=== PATIENT | male | born 1990 | race Two or more races ===

== ENCOUNTER 2016-05-04 19:41 | Emergency (ER) | payer MEDICAID ==
[2016-05-04 20:02] VITALS: BP 137/96; PULSE 82; RESP 15; TEMP 98.6; O2SAT 96
[2016-05-04] MEDS ORDERED: IBUPROFEN 800 MG TAB PO ONE (21:21)
[2016-05-04] MEDS ORDERED: IBUPROFEN 200 MG TAB PO ONE (21:24)
--- NOTE | 2016-05-04 21:24 | UCPHY ---
H & P Time Seen by Provider: 05/04/16 21:14 Patient Type: New HPI/ROS: CHIEF COMPLAINT: Fall, back pain HISTORY OF PRESENT ILLNESS: Patient is a 25-year-old male who presents emergency department after slipping and falling yesterday. He struck his low to mid back. He now has low midline back pain. It is worse with movement. His pain is moderate. It does not radiate. Has no incontinence of urine or stool. No numbness or weakness. No fevers or chills. REVIEW OF SYSTEMS: My complete review of systems is negative except as mentioned in the HPI. Past Medical/Surgical History: Negative Past surgical history: Denies Smoking Status: Never smoked Physical Exam: Vitals noted GENERAL: Well-appearing, in no acute distress, alert. HEAD: No evidence of trauma. EYES: PERRLA, EOMI, normal to inspection. ENT: Airway intact, normal external examination. NECK: The C-spine is nontender. NEXUS criteria is negative (no midline tenderness, no distracting injury, no altered mental status, no recent alcohol use, no focal neurologic deficit). RESPIRATORY: Clear to auscultation bilaterally. There is no crepitus or palpable rib fractures. CVS: Regular rate and rhythm, no rubs, murmurs, or gallops. ABDOMEN: Soft, nontender Pelvis: Stable. No tenderness palpation. Hips full range of motion. BACK: Normal to inspectio. No spinal step off, no notable bruising or abrasions. Patient has mild upper lumbar tenderness to palpation midline. SKIN: Normal color, warm, dry. No pallor or diaphoresis. EXTREMITIES: Extremities are atraumatic. NEURO/PSYCH: Alert and oriented, normal mood and affect, normal motor sensory exam. Constitutional: Initial Vital Signs Temperature (C) 37 C 05/04/16 19:59 Heart Rate 82 05/04/16 19:59 Respiratory Rate 15 05/04/16 19:59 Blood Pressure 137/96 H 05/04/16 19:59 O2 Sat (%) 96 05/04/16 19:59 O2 Delivery Mode Room Air Allergies/Adverse Reactions: No Known Allergies Allergy (Unverified 12/21/11 20:46) Home Medications: Medication Instructions Recorded Hydrocodone/APAP 5/325 [Letona 1 - 2 tab PO Q4 #13 tab 05/04/16 5/325 (RX)] Medical Decision Making ED Course/Re-evaluation: I discussed possible etiologies with the patient. He is given ibuprofen 800 mg orally. A lumbar spine x-ray was ordered. Lumbar spine x-ray: Please refer the dictated report. No acute disease or fracture noted. Discussed the results with the patient. I answered all his questions. He was given a take-home pack of Letona. He was given a prescription of Letona as well. He was given warnings prior to leaving. He will return with worsening symptoms. Differential Diagnosis: My differential includes but is not limited to back strain, fracture, dislocation, cauda equina syndrome, disc herniation, kidney injury, pneumothorax , hemothorax, pelvic fracture - Data Points Medications Given: Discontinued Medications Ibuprofen (Motrin) 800 mg PO EDNOW ONE Stop: 05/04/16 21:22 Last Admin: 05/04/16 21:30 Dose: 800 mg Departure - Departure Disposition: Home, Routine, Self-Care Clinical Impression: Lumbar back pain Qualifiers: Chronicity: acute Back pain laterality: midline Sciatica presence: without sciatica Qualifier Code: (M54.5) Low back pain Condition: Good Instructions: Acute Low Back Pain (ED) Additional Instructions: Return with increasing pain, weakness, numbness or any other concerns. [facility]Outside[facility] - As per Instructions Prescriptions: Hydrocodone/APAP 5/325 [Letona 5/325 (RX)] 1 - 2 tab PO Q4 #13 tab - PQRS PQRS Measurement: My PQRS negative my PQRS negative my PQRS negative my PQRS negative 134: Depression screening and followup, PRIME MD-PHQ2 (12 years and older) Over the last 2 weeks, how often have you been bothered by any of the following problems? 1. Feeling down, depressed, or hopeless? 2. Little interest or pleasure in doing things? Patient answered no to both 1 and 2 130: Documentation of medications. Reviewed all patient medications, doses, route and frequency. 226: Do you smoke? No.
[2016-05-04] MEDS ORDERED: HYDROCOD/APAP 5/325 PREPACK#6 BTL TAKEHOME ONE (21:25)
--- NOTE | 2016-05-04 21:40 | DX ---
Lumbar Spine, 2 standing views History: Fall, low back pain Comparison: None Findings: No fracture or malalignment is identified. Disk spaces and vertebral bodies maintain normal height. The SI joints and hip joints look normal. Retroperitoneal fat planes are intact. Impression: Negative
== END 2016-05-04 22:15 | disposition home or self-care (01) ==
LOC: CED 19:41
DX: M54.5 Low back pain (principal)
CPT/HCPCS: 72100-PO; 99203-PO; G0463-PO